=== PATIENT | female | born 1930 | race Caucasian/White ===

== ENCOUNTER 2017-02-23 12:27 | Emergency (ER) | payer MEDICARE, OTHER | END 2017-02-23 14:47 | disposition critical access hospital (66) | LOC: ER 12:27 | DX: K92.2 Gastrointestinal hemorrhage, unspecified (principal); F32.9 Major depressive disorder, single episode, unspecified; I10 Essential (primary) hypertension; E03.9 Hypothyroidism, unspecified; D64.9 Anemia, unspecified; I25.10 Atherosclerotic heart disease of native coronary artery without angina pectoris | CPT/HCPCS: 36415; 96361; 96365 ==

== ENCOUNTER 2017-02-23 12:27 | Inpatient (IN) | payer MEDICARE, OTHER ==
[~2017-02-23] VITALS: Ht 152.4 cm; Wt 41.0 kg
--- NOTE | 2017-02-25 13:31 | NUR ---
1331: REPORT GIVEN TO BILL ISBELL RN AT [facility]. RN VERB AGREEMENT WITH DC INSTRUCTIONS.
--- NOTE | 2017-02-25 14:06 | NUR ---
1406: PT TRANSPORTED OFF FLOOR VIA AMBULANCE. PT ALERT AND ORIENTED TO NAME. VERB UNDERSTANDING THAT SHE IS GOING BACK TO [facility].
== END 2017-02-25 14:07 | DRG 377 ==
LOC: ER 12:27 → ICU 14:48
PROVIDERS: ADMIT Internal Medicine
DX: K92.0 Hematemesis (principal); J69.0 Pneumonitis due to inhalation of food and vomit; N17.9 Acute kidney failure, unspecified; E87.1 Hypo-osmolality and hyponatremia; D72.829 Elevated white blood cell count, unspecified; I10 Essential (primary) hypertension; E03.9 Hypothyroidism, unspecified; E78.5 Hyperlipidemia, unspecified; M19.90 Unspecified osteoarthritis, unspecified site; M81.0 Age-related osteoporosis without current pathological fracture; D50.9 Iron deficiency anemia, unspecified; Z79.82 Long term (current) use of aspirin; Z79.899 Other long term (current) drug therapy; J44.9 Chronic obstructive pulmonary disease, unspecified; K25.4 Chronic or unspecified gastric ulcer with hemorrhage; K29.71 Gastritis, unspecified, with bleeding; E87.5 Hyperkalemia
CPT/HCPCS: 36415; 92610; 97162-GP; 97166; J3370; P9021